=== PATIENT | female | born 1985 | race Caucasian/White ===

== ENCOUNTER 2017-10-28 19:54 | Emergency (ER) | payer OTHER ==
--- NOTE | 2017-10-28 20:27 | EDPHY ---
H & P Time Seen by Provider: 10/28/17 20:10 HPI/ROS: Chief complaint: Finger laceration HPI: 32-year-old female who was at work and she sustained a laceration to her left index finger, radial aspect as she was cutting bread with a new knife, at [facility]. She was in a hurry so she was holding a lot of pressure on the knife. This has happened prior to admission while at work. Right Handed This happened at work , occurring just [employer] Reports there is no numbness or loss of sensation. 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 Well-nourished. No odor of alcohol. Nontoxic. Afebrile. Extremity: There is a [to ] cm, [linear] laceration that is [full] thickness to the [radial aspect of the left ring finger at the PIP joint ]. Function: [Without] signs of tendon dysfunction NV Status: Intact CMS: Intact Constitutional: Initial Vital Signs Temperature (C) 36.7 C 10/28/17 20:06 Heart Rate 80 10/28/17 20:06 Respiratory Rate 16 10/28/17 20:06 Blood Pressure 132/84 H 10/28/17 20:06 O2 Sat (%) 99 10/28/17 20:06 O2 Delivery Mode Room Air Allergies/Adverse Reactions: No Known Allergies Allergy (Unverified 10/28/17 20:06) Home Medications: Medication Instructions Recorded NK [No Known Home Meds] 10/28/17 Medical Decision Making Procedures: Procedure: Laceration repair. Options presented to [patient], consented to repair. Opted for suture rather than Steri-Strips After skin prep with [chloraseptic] the wound was anesthesized with [digital block] with [lidocaine 1 %] [without epinephrine] The wound was [Cleansed with irrigation by Tech] The length of the wound was 2 cm curved, the mostly linear.. Inspection and exploration of the wound, with gloved finger and forceps ,prior to closure revealed no evidence of foreign body and no involvement of deeper structures. Closure was obtained using 3 sutures of 4 nylon. Initially 2 were placed but there was 1 wisp of a triangular piece of tissue that would come up thus that was anchored with a 4 0 nylon suture, broadly placed. At the end of the procedure, wound edges were well approximated and hemostasis was achieved. Patient tolerated procedure well. ED Course/Re-evaluation: Digital block performed by me prior to cleaning. Cleanse by forestry aid technician. Patient tolerated procedure and cleaning well Differential Diagnosis: Diagnostic considerations include, but are not limited to, the following: Laceration, retained FB, tendon injury, fracture. Departure - Departure Disposition: Home, Routine, Self-Care Clinical Impression: Laceration of finger of left hand without foreign body Qualifiers: Encounter type: initial encounter Finger: index finger Damage to nail status: without damage Qualified Code(s): S61.211A - Laceration without foreign body of left index finger without damage to nail, initial encounter Condition: Good Instructions: Finger Laceration (ED) Additional Instructions: Keep the area clean and dry. Wear splint for 10 days Sutures out here in 10 days You're able to work though he must keep the hand clean and dry. Change those gloves frequently. Contact her employer regarding worker's Comp follow-up for suture removal. If there is any pink discoloration extending beyond the wound itself or increasing pain you need to have it checked for infection, in that case you can come back here. Referrals: [facility] [Other] - As per Instructions
[2017-10-28 21:09] VITALS: BP 132/88
== END 2017-11-07 10:17 | disposition home or self-care (01) ==
LOC: CED 19:54
PROC: 0HQGXZZ Repair Left Hand Skin, External Approach (ICD-10-PCS; principal; 2017-10-28)
DX: S61.211A Laceration without foreign body of left index finger without damage to nail, initial encounter (principal); W26.0XXA Contact with knife, initial encounter; Y92.69 Other specified industrial and construction area as the place of occurrence of the external cause; Y99.0 Civilian activity done for income or pay; Y93.89 Activity, other specified